=== PATIENT | female | born 1965 ===

== ENCOUNTER → 2019-01-30 | Outpatient (REF) | payer OTHER ==
[2019-01-30 18:52] LABS: FREE T4 1.02 NG/DL (0.76-1.46); THYROID STIMULATING HORMONE 0.28 uIU/ML (0.358-3.740)
== END ==
LOC: M LABDRAW1 17:58
PROVIDERS: ATTEND Nurse Practitioner Family
DX: E06.3 Autoimmune thyroiditis (principal); E04.1 Nontoxic single thyroid nodule